=== PATIENT | female | born 2000 | race Caucasian/White ===

== ENCOUNTER 2025-05-23 23:38 | Day surgery (SDC) | payer OTHER ==
[2025-05-24] MEDS ORDERED: hydrALAZINE 20 MG/ML VIAL SLOW IVP PRN (00:38)
[2025-05-24 01:12] VITALS: BMI 38.4
[2025-05-24 01:25] LABS: Fetal Membranes Rupture No Membranes Rupture (No Rupture)
== END 2025-05-24 02:00 | disposition home or self-care (01) ==
LOC: CSHLD/OP 23:38
PROVIDERS: ATTEND Family Medicine
DX: Z03.71 Encounter for suspected problem with amniotic cavity and membrane ruled out (principal); Z3A.38 38 weeks gestation of pregnancy
CPT/HCPCS: 84112; 87480; 87510; 87660; 99285

== ENCOUNTER 2025-05-25 04:33 | Day surgery (SDC) | payer OTHER ==
[2025-05-25 05:00] VITALS: BMI 38.4
[2025-05-25] MEDS ORDERED: hydrALAZINE 20 MG/ML VIAL SLOW IVP PRN (05:08)
[2025-05-25 06:04] LABS: Fetal Membranes Rupture No Membranes Rupture (No Rupture)
== END 2025-05-25 06:26 | disposition home or self-care (01) ==
LOC: CSHLD/OP 04:33
PROVIDERS: ATTEND Family Medicine
DX: O23.593 Infection of other part of genital tract in pregnancy, third trimester (principal); N89.8 Other specified noninflammatory disorders of vagina; O99.013 Anemia complicating pregnancy, third trimester; O98.813 Other maternal infectious and parasitic diseases complicating pregnancy, third trimester; B37.9 Candidiasis, unspecified; Z3A.39 39 weeks gestation of pregnancy; Z91.040 Latex allergy status; Z88.5 Allergy status to narcotic agent; Z79.899 Other long term (current) drug therapy
CPT/HCPCS: 84112; 99285

== ENCOUNTER 2025-05-25 20:10 | Inpatient (IN) | payer OTHER ==
[~2025-05-25 20:10] MED LIST: Bupivacaine 0.25% HCL 30 ML VIAL ONE; Bupivacaine HCl 0.5%/Epinephrine 1:200,000/PF 30 ml Vial ONE
[2025-05-25] MEDS ORDERED: hydrALAZINE 20 MG/ML VIAL SLOW IVP PRN ×2 (20:36→20:43)
[2025-05-25] MEDS ORDERED: Diphenoxylate HCl/Atropine Tablet PO PRN ×2 (20:43)
[2025-05-25] MEDS ORDERED: Methylergonovine 0.2 MG/ML VIAL IM PRN (20:43)
[2025-05-25] MEDS ORDERED: Acetaminophen 500 MG TAB PO PRN (20:43)
[2025-05-25] MEDS ORDERED: Carboprost 250 MCG/ML AMP IM PRN (20:43)
[2025-05-25] MEDS ORDERED: Lidocaine 1% (PF) 30 ML VIAL SC PRN (20:43)
[2025-05-25] MEDS ORDERED: Tranexamic Acid 1,000 MG/10 ML VIAL IVP PRN (20:43)
[2025-05-25] MEDS ORDERED: Oxytocin 30 units/NS 500 ML 500 ML IV SCH (20:45)
[2025-05-25] MEDS ORDERED: Ibuprofen 800 MG TAB PO PRN (21:06)
[2025-05-25 21:13] VITALS: BMI 40.7
[2025-05-25 22:08] LABS: Hematocrit 35.6 % (34.9-44.5); Hemoglobin 11.5 g/dL (12.0-15.5); Mean Corpuscular Hemoglobin 27.4 pg (27.0-33.0); Mean Corpuscular Volume 84.8 fL (81.6-98.3); Platelet Count 482 10x3/uL (150-450); Red Blood Cell (RBC) Count 4.20 10x6/uL (3.90-5.03); White Blood Cell (WBC) Count 13.53 10x3/uL (3.5-10.5)
[2025-05-25 22:37] LABS: Hep B Surf Ag - L&D Non-Reactive S/CO (NonReactive)
[2025-05-25 22:38] LABS: Syphilis Antibody Index 0.07 S/CO (<1.00 Non-Reactive)
[2025-05-26] MEDS ORDERED: Calcium Carbonate 500 MG ChewTAB PO PRN (00:54)
[2025-05-26] MEDS: Oxytocin 30 units/NS 500 ML 500 ML IV SCH (07:38)
[2025-05-26] MEDS: Famotidine 20 MG TAB PO SCH (07:39)
[2025-05-26] MEDS: fentaNYL/Ropivacaine Epidural 100 ML ONE (10:15)
[2025-05-26] MEDS ORDERED: Ondansetron PF 4 MG/2 ML Vial IVP PRN (10:38)
[2025-05-26] MEDS ORDERED: Acetaminophen 325 MG TAB PO PRN (10:38)
[2025-05-26] MEDS ORDERED: diphenhydrAMINE 50 MG/ML VIAL IVP PRN (10:38)
[2025-05-26] MEDS ORDERED: Communication Order-Pharmacy FS SCH (10:45)
[2025-05-26] MEDS: Ondansetron PF 4 MG/2 ML Vial IVP PRN (10:49)
[2025-05-26] MEDS: fentaNYL 2 mcg/Ropivacaine 0.2% Epidural 100 ML CADD EPIDURAL SCH (18:35)
[2025-05-26] MEDS ORDERED: Famotidine 20 MG TAB PO SCH (21:00)
[2025-05-26] MEDS ORDERED: Azithromycin 500 MG in Sodium Chloride 0.9% 250 ML 250 ML IVPB SCH (23:45)
[2025-05-26] MEDS ORDERED: Famotidine/PF 20 mg/2ml Vial SLOW IVP PRN (23:52)
[2025-05-26] MEDS ORDERED: Bicitra 30 ML UDCUP PO PRN (23:52)
[2025-05-27] MEDS ORDERED: Meperidine HCl/PF 25 MG (1 mL) VIAL SLOW IVP PRN (01:38)
[2025-05-27] MEDS ORDERED: Ondansetron PF 4 MG/2 ML Vial IVP PRN (01:38)
[2025-05-27] MEDS ORDERED: Methylergonovine 0.2 MG/ML VIAL IM PRN (01:39)
[2025-05-27] MEDS ORDERED: Bisacodyl 10 MG SUPP PR PRN (01:39)
[2025-05-27] MEDS ORDERED: Lanolin Ointment 7 GM TUBE TOP PRN (01:39)
[2025-05-27] MEDS ORDERED: hydrALAZINE 20 MG/ML VIAL SLOW IVP PRN (01:39)
[2025-05-27] MEDS ORDERED: diphenhydrAMINE 25 MG CAP PO PRN (01:39)
[2025-05-27] MEDS ORDERED: HYDROcodone/Acetaminophen 5/325 mg Tablet PO PRN (01:39)
[2025-05-27] MEDS ORDERED: Ketorolac Tromethamine 30 MG (1 mL) VIAL IVP SCH (01:45)
[2025-05-27] MEDS ORDERED: Oxytocin 30 units/NS 500 ML 500 ML IV SCH (01:45)
[2025-05-27] MEDS ORDERED: Ibuprofen 800 MG TAB PO SCH (06:00)
[2025-05-27] MEDS: Ketorolac Tromethamine 30 MG (1 mL) VIAL IVP SCH (06:30)
[2025-05-27] MEDS: Dexamethasone 10 MG/ML VIAL ONE (07:36)
[2025-05-27] MEDS: Azithromycin 500 MG VIAL ONE (07:36)
[2025-05-27] MEDS: Ondansetron PF 4 MG/2 ML Vial ONE (07:36)
[2025-05-27] MEDS: CEFAZOLIN 2 GM VIAL ONE (07:36)
[2025-05-27] MEDS: Oxytocin 10 UNITS/ML VIAL ONE ×2 (07:36→07:37)
[2025-05-27] MEDS: PHENYLEPHRINE-NS 100 MCG/ML 10 ML SYRINGE ONE ×3 (07:36→07:37)
[2025-05-27] MEDS: Ketorolac Tromethamine 30 MG (1 mL) VIAL ONE (07:37)
[2025-05-27] MEDS: Boostrix 0.5 ML (Tdap) VIAL (>/=7 yrs of age) IM ONE (07:37)
[2025-05-27] MEDS: Tranexamic Acid 1,000 MG/10 ML VIAL ONE (07:37)
[2025-05-27] MEDS: Ferrous Sulfate 325 MG TAB PO SCH (08:23)
[2025-05-27] MEDS: HYDROcodone/Acetaminophen 5/325 mg Tablet PO PRN (10:44)
[2025-05-27] MEDS: Simethicone Chewable 80 MG TAB PO PRN (19:59)
[2025-05-28 04:21] LABS: Hematocrit 26.3 % (34.9-44.5); Hemoglobin 8.6 g/dL (12.0-15.5); Mean Corpuscular Hemoglobin 27.7 pg (27.0-33.0); Mean Corpuscular Volume 84.8 fL (81.6-98.3); Platelet Count 319 10x3/uL (150-450); Red Blood Cell (RBC) Count 3.10 10x6/uL (3.90-5.03); White Blood Cell (WBC) Count 15.89 10x3/uL (3.5-10.5)
[2025-05-28] MEDS: Ondansetron PF 4 MG/2 ML Vial IVP PRN (08:57)
[2025-05-28] MEDS: Ibuprofen 800 MG TAB PO SCH (14:12)
[2025-05-29] MEDS: Acetaminophen 325 MG TAB PO PRN (11:11)
[2025-05-30 16:23] VITALS: BP 121/62; TEMP 97.8
== END 2025-05-30 18:58 | disposition home or self-care (01) | DRG 788 ==
LOC: CSHLD/OP 20:10 → EEVIPCON 22:06 → CSHLD 22:06 → CSHPP 05-27 04:30
PROVIDERS: ADMIT Family Medicine; ATTEND Family Medicine
PROC: 10907ZC Drainage of Amniotic Fluid, Therapeutic from Products of Conception, Via Natural or Artificial Opening (ICD-10-PCS; 2025-05-26)
PROC: 10H07YZ Insertion of Other Device into Products of Conception, Via Natural or Artificial Opening (ICD-10-PCS; 2025-05-26)
PROC: 10D00Z1 Extraction of Products of Conception, Low, Open Approach (ICD-10-PCS; principal; 2025-05-27)
DX: O34.83 Maternal care for other abnormalities of pelvic organs, third trimester (principal); Z3A.39 39 weeks gestation of pregnancy; O99.214 Obesity complicating childbirth; E66.9 Obesity, unspecified; O66.8 Other specified obstructed labor
CPT/HCPCS: 36415; 51702; 80307; 85027; 86780; 86850; 86900; 86901; 87340; 99285; J0595; J0665; J1100; J1885; J2405; J2550; J2590; J3010; J7120; Q0162